=== PATIENT | female | born 1990 | race Caucasian/White ===

== ENCOUNTER 2020-05-21 15:08 | Emergency (ER) | payer OTHER ==
--- NOTE | 2020-05-21 17:14 | RAD REPORT ---
EXAM DESCRIPTION: US - Transvaginal OB - 05/21/2020 4:55 pm CLINICAL HISTORY: post-fall;Abd pain COMPARISON: OBSTETRICAL COMPLETE dated 07/22/2009 FINDINGS: A single gestational sac is seen within the uterus. The shape of the sac is within normal limits for gestational age. Within the sac is a single pole with crown-rump length of 4.5 cm, c orrelating to estimated gestational age of 11 weeks 2 days. Estimated date of delivery is 12/08/2020. Heart rate is 165 BPM. Posterior placenta. The maternal adnexa and right ovary are within normal limits. Normal Doppler blood flow was demonstra thai to the right ovary. The left ovary was obscured by bowel gas. IMPRESSION: Single live early intrauterine gestation with estimated gestational age of 11 weeks 2 da ys, SKYLER 12/08/2020.
--- NOTE | 2020-05-21 18:26 | ER ---
Nurse's Notes [facility] Name: Zonia Chambers Age: 29 yrs Sex: Female : 1990 Arrival Date: 05/21/2020 Time: 15:09 Bed 23 Private MD: Diagnosis: Intrauterine ;Fall on same level Presentation: 05/21 15:19 Chief complaint: "I got onto a step stool at work and it was fragile and it folded on aa5 me and I fell and my lower abdomen hit some cabinets". Pt reports she is approximately 12 weeks , pt reports she has not had her first US yet. Pt c/o low abd pressure, denies vaginal bleeding. Pt appears anxious. 15:19 Coronavirus screen: Client denies travel out of the [place] in the last 14 days. At this aa5 time, the client does not indicate any symptoms associated with coronavirus-19. Ebola Screen: Patient negative for fever greater than or equal to 101.5 degrees Fahrenheit, and additional compatible Ebola Virus Disease symptoms. Initial Sepsis Screen: Does the patient meet any 2 criteria? No. Patient's initial sepsis screen is negative. Does the patient have a suspected source of infection? No. Patient's initial sepsis screen is negative. Risk Assessment: Do you want to hurt yourself or someone else? Patient reports no desire to harm self or others. Onset of symptoms was May 21, 2020. 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 - Social history:: Smoking status: Patient denies any tobacco usage or history of. Screenin:35 Abuse screen: Denies threats or abuse. Nutritional screening: No deficits noted. aa5 Tuberculosis screening: No symptoms or risk factors identified. Fall Risk None identified. Assessment: 17:35 General: Appears comfortable, Behavior is calm, cooperative. Pain: Complains of pain in aa5 suprapubic area Pain currently is 5 out of 10 on a pain scale. Quality of pain is described as pressure, Is continuous. Neuro: Level of Consciousness is awake, alert, obeys commands, Oriented to person, place, time, situation. Cardiovascular: Patient's skin is warm and dry. Respiratory: Airway is patent Respiratory effort is even, unlabored, Respiratory pattern is regular, symmetrical. GI: Abdomen is round non-distended, Bowel sounds present X 4 quads. Abdomen is tender to palpation in suprapubic area, right lower quadrant and left lower quadrant. : No signs and/or symptoms were reported regarding the genitourinary system. Denies vaginal bleeding. EENT: No signs and/or symptoms were reported regarding the EENT system. Derm: Skin is pink, warm \\T\\ dry. Musculoskeletal: Range of motion: intact in all extremities. 18:38 Reassessment: Patient is alert, oriented x 3, equal unlabored respirations, skin aa5 warm/dry/pink. Vital Signs: 15:19 BP 139 / 96; Pulse 80; Resp 16 S; Temp 98.6(O); Pulse Ox 100% on R/A; aa5 ED Course: 15:09 Patient arrived in ED. ag5 15:19 Arm band placed on. aa5 15:24 Triage completed. aa5 15:25 [facility]C [facility] snw 15:25 Ronen Cano MD is Attending Physician. snw 16:33 Patient taken to ultrasound. via wheelchair. is 16:53 Ultrasound completed. Patient tolerated well. is 16:53 Patient taken to lobby, Patient moved back from ultrasound. is 16:55 Transvaginal OB US In Process Unspecified. EDMS 17:34 Patient has correct armband on for positive identification. Bed in low position. Call aa5 light in reach. Side rails up X 1. 17:35 No provider procedures requiring assistance completed. Patient did not have IV access aa5 during this emergency room visit. 17:49 Gabi Lomax, RN is Primary Nurse. aa5 Administered Medications: No medications were administered Outcome: 18:25 Discharge ordered by . snw 18:38 Discharged to home ambulatory, with significant other. aa5 18:38 Condition: stable 18:38 Discharge instructions given to patient, Instructed on discharge instructions, follow up and referral plans. Demonstrated understanding of instructions, follow-up care. 18:40 Patient left the ED. aa5 Signatures: Dispatcher [employer] EDAde Gomez, [employer] FORCES SPECIALIST-C [employer] SPECIALIST-[employer] Gabi Lomax RN RN aa5 Lili Padron ag5 Jodi Beltran is
--- NOTE | 2020-05-21 18:26 | EDPHYS ---
Physician Documentation [facility] Name: Zonia Chambers Age: 29 yrs Sex: Female : 1990 Arrival Date: 05/21/2020 Time: 15:09 Bed 23 Private MD: ED Physician Ronen Cano HPI: 05/21 18:29 This 29 yrs old Female presents to ER via Ambulatory with complaints of Fall snw Injury, 12 wks . 18:29 Details of fall: The patient fell from an upright position, while standing. Onset: The snw symptoms/episode began/occurred suddenly, today, at 15:00. Associated injuries: The patient sustained injury to the abdomen, contusion, tenderness. Severity of symptoms: At their worst the symptoms were very mild. The patient has not experienced similar symptoms in the past. Pt is seeing Dr. Aguilar. . Denies LOC, no vag bleeding, no vag discharge. 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 - Social history:: Smoking status: Patient denies any tobacco usage or history of. ROS: 18:28 Constitutional: Negative for fever, chills, and weight loss, Eyes: Negative for injury, snw pain, redness, and discharge, ENT: Negative for injury, pain, and discharge, Neck: Negative for injury, pain, and swelling, Cardiovascular: Negative for chest pain, palpitations, and edema, Respiratory: Negative for shortness of breath, cough, wheezing, and pleuritic chest pain, Back: Negative for injury and pain, : Negative for injury, bleeding, discharge, and swelling, MS/Extremity: Negative for injury and deformity, Skin: Negative for injury, rash, and discoloration, Neuro: Negative for headache, weakness, numbness, tingling, and seizure, Psych: Negative for depression, anxiety, suicide ideation, homicidal ideation, and hallucinations. 18:28 Abdomen/GI: Positive for tenderness across low abdomen. Exam: 18:28 Constitutional: This is a well developed, well nourished patient who is awake, alert, snw and in no acute distress. Head/Face: Normocephalic, atraumatic. Eyes: Pupils equal round and reactive to light, extra-ocular motions intact. Lids and lashes normal. Conjunctiva and sclera are non-icteric and not injected. Cornea within normal limits. Periorbital areas with no swelling, redness, or edema. ENT: Nares patent. No nasal discharge, no septal abnormalities noted. Tympanic membranes are normal and external auditory canals are clear. Oropharynx with no redness, swelling, or masses, exudates, or evidence of obstruction, uvula midline. Mucous membranes moist. Neck: Trachea midline, no thyromegaly or masses palpated, and no cervical lymphadenopathy. Supple, full range of motion without nuchal rigidity, or vertebral point tenderness. No Meningismus. Chest/axilla: Normal chest wall appearance and motion. Nontender with no deformity. No lesions are appreciated. Cardiovascular: Regular rate and rhythm with a normal S1 and S2. No gallops, murmurs, or rubs. Normal PMI, no JVD. No pulse deficits. Respiratory: Lungs have equal breath sounds bilaterally, clear to auscultation and percussion. No rales, rhonchi or wheezes noted. No increased work of breathing, no retractions or nasal flaring. Abdomen/GI: Soft, non-tender, with normal bowel sounds. No distension or tympany. No guarding or rebound. No evidence of tenderness throughout. Back: No spinal tenderness. No costovertebral tenderness. Full range of motion. Skin: Warm, dry with normal turgor. Normal color with no rashes, no lesions, and no evidence of cellulitis. MS/ Extremity: Pulses equal, no cyanosis. Neurovascular intact. Full, normal range of motion. Neuro: Awake and alert, GCS 15, oriented to person, place, time, and situation. Cranial nerves II-XII grossly intact. Motor strength 5/5 in all extremities. Sensory grossly intact. Cerebellar exam normal. Normal gait. Psych: Awake, alert, with orientation to person, place and time. Behavior, mood, and affect are within normal limits. Vital Signs: 15:19 BP 139 / 96; Pulse 80; Resp 16 S; Temp 98.6(O); Pulse Ox 100% on R/A; aa5 MDM: 18:16 Patient medically screened. snw 18:28 Data reviewed: vital signs, nurses notes. Data interpreted: Pulse oximetry: on room air snw is 100 %. Interpretation: normal. Counseling: I had a detailed discussion with the patient and/or guardian regarding: the historical points, exam findings, and any diagnostic results supporting the discharge/admit diagnosis, the presence of at least one elevated blood pressure reading (>120/80) during this emergency department visit, lab results, the need for outpatient follow up, for definitive care, to return to the emergency department if symptoms worsen or persist or if there are any questions or concerns that arise at home. 05/21 15:32 Order name: Urine Dipstick--Ancillary (enter results) em1 05/21 15:32 Order name: Urine --Ancillary (enter results) em1 05/21 15:25 Order name: Transvaginal OB US; Complete Time: 17:21 aa5 05/21 15:25 Order name: Urine Dipstick-Ancillary (obtain specimen); Complete Time: 15:30 aa5 05/21 15:25 Order name: Urine Test (obtain specimen); Complete Time: 15:30 aa5 Administered Medications: No medications were administered Disposition: 19:12 Co-signature as Attending Physician, Ronen Cano MD I agree with the assessment and kdr plan of care. Disposition: 05/21/20 18:25 Discharged to Home. Impression: Intrauterine , Fall on same level. - Condition is Stable. - Discharge Instructions: Abdominal Pain During , Immunizations and , First Trimester of , Rehydration, Adult, What Do I Need to Know About Injuries During ?, Form - Return To Work. - Work release form, Medication Reconciliation Form, Thank You Letter, Antibiotic Education, Prescription Opioid Use form. - Follow up: Emergency Department; When: As needed; Reason: Worsening of condition. Follow up: Private Physician; When: 2 - 3 days; Reason: Recheck today's complaints, Continuance of care, Re-evaluation by your physician. Signatures: Dispatcher [employer] Ronen Chandler MD MD kdr Waters, Shelly, FLIGHT CREW TIME CLERK-C FLIGHT CREW TIME CLERK-[place] Gabi Lomax RN RN aa5 Corrections: (The following items were deleted from the chart) 18:40 18:25 05/21/2020 18:25 Discharged to Home. Impression: Intrauterine ; Fall on aa5 same level. Condition is Stable. Forms are Medication Reconciliation Form, Thank You Letter, Antibiotic Education, Prescription Opioid Use. Follow up: Emergency Department; When: As needed; Reason: Worsening of condition. Follow up: Private Physician; When: 2 - 3 days; Reason: Recheck today's complaints, Continuance of care, Re-evaluation by your physician. snw
[2020-05-21 18:52] VITALS: BP 139/96; TEMP 98.6; O2SAT 100
[2020-05-21 19:13] LABS: Urine Blood NEGATIVE (NEG); Urine Glucose NEGATIVE (NEG); Urine Protein NEGATIVE (NEG); Urine pH 6.5 (5.0-7.0)
== END 2020-05-21 18:40 | disposition home or self-care (01) ==
LOC: ER 15:08
DX: O26.891 Other specified pregnancy related conditions, first trimester (principal); W17.89XA Other fall from one level to another, initial encounter; Y93.89 Activity, other specified; Y92.89 Other specified places as the place of occurrence of the external cause; Y99.8 Other external cause status; Z3A.11 11 weeks gestation of pregnancy; Z88.0 Allergy status to penicillin; Z88.1 Allergy status to other antibiotic agents
CPT/HCPCS: 76817; 81003; 81025; 99284